=== PATIENT | female | born 1975 | race Two or more races ===

== ENCOUNTER 2019-10-25 08:33 | Outpatient (CLI) | payer OTHER | END 2019-10-25 15:00 | disposition home or self-care (01) | LOC: LAB 08:33 | DX: N39.0 Urinary tract infection, site not specified (principal) ==

== ENCOUNTER 2025-07-30 07:31 | Outpatient (CLI) | payer OTHER | END 2025-07-30 07:35 | disposition home or self-care (01) | LOC: NUCLEAR 07:31 | PROVIDERS: ATTEND Internal Medicine Cardiovascular Disease | DX: I10 Essential (primary) hypertension (principal) ==